=== PATIENT | male | born 1960 | race African-American/Black ===

== ENCOUNTER 2017-10-05 15:07 | Inpatient (IN) ==
[~2017-10-05 15:07] MED LIST: CHLORHEXIDINE 0.12% ORAL RINSE 60 ML BOTTLE SWISH/SPIT SCH; DEXTROSE 50% 25 GM/50 ML VIAL IV PRN; GLUCAGON 1 MG VIAL IM PRN; SODIUM CHLORIDE 0.9% 1,000 ML IV SCH; ZOLPIDEM 5 MG TABLET PO PRN; oxyCODONE/ACETAMINOPHEN 5-325 MG TABLET PO PRN
[2017-10-05] MEDS ORDERED: oxyCODONE/ACETAMINOPHEN 5-325 MG TABLET PO PRN (16:43)
[2017-10-05] MEDS ORDERED: DEXTROSE 50% 25 GM/50 ML VIAL IV PRN ×2 (16:43)
[2017-10-05] MEDS ORDERED: GLUCAGON 1 MG VIAL IM PRN ×2 (16:43)
[2017-10-05] MEDS ORDERED: ZOLPIDEM 5 MG TABLET PO PRN (16:43)
[2017-10-05] MEDS ORDERED: ZALEPLON 5 MG CAPSULE PO PRN (17:30)
[2017-10-05] MEDS: SODIUM CHLORIDE 0.9% 1,000 ML IV SCH (17:37)
[2017-10-05] MEDS ORDERED: ALBUTEROL/IPRATROPIUM 3 ML NEB RESP TX SCH (19:00)
[2017-10-05] MEDS: ALBUTEROL/IPRATROPIUM 3 ML NEB RESP TX SCH (19:54)
[2017-10-05] MEDS ORDERED: METOPROLOL TARTRATE 25 MG TABLET PO SCH (21:00)
[2017-10-05] MEDS: CHLORHEXIDINE 0.12% ORAL RINSE 60 ML BOTTLE SWISH/SPIT SCH (21:37)
[2017-10-05] MEDS: METOPROLOL TARTRATE 25 MG TABLET PO SCH (21:38)
[2017-10-06] MEDS: ALBUTEROL/IPRATROPIUM 3 ML NEB RESP TX SCH ×4 (00:26→20:20)
[2017-10-06 03:03] LABS: ABG Base Excess 3.7 MMOL/L (-2.5-2.5); ABG HCO3 27.8 MMOL/L (20-26); ABG Oxygen Saturation 91.1 % (95-100); ABG PCO2 40.3 MM HG (35-48); ABG PH 7.457 (7.35-7.45); ABG PO2 56.1 MM HG (80-95); ABG TCO2 29.1 MMOL/L (23-27); Allen Test Positive; Pt O2 Delivery Device Room Air
[2017-10-06 05:03] LABS: Basophils % 0.3 % (0.0-0.8); Eosinophils % 0.5 % (0.00-10.9); Hematocrit 41.6 VOL% (42.0-52.0); Hemoglobin 14.6 GM/DL (14.0-18.0); Immature Granulocytes % 0.3 %; Immature Granulocytes Absolute 0.01 #; Lymphocytes # 1.6 10*3/uL (1.4-4.0); Lymphocytes % 41.2 % (21.2-54.2); Mean Corpuscular HGB Conc 35.1 GM/DL (32-36); Mean Corpuscular Hemoglobin 33 PG (27-34); Mean Corpuscular Volume 93.3 FL (87-102); Monocytes # 0.4 10*3/uL (0.11-0.8); Monocytes % 10.3 % (1.7-12.7); Neutrophils # 1.8 10*3/uL (1.4-7.4); Neutrophils % 47.4 % (38.7-73.9); Platelet Count 130 T/CUMM (130-400); Red Blood Count 4.46 MC/CUMM (3.8-5.5); Red Cell Distribution Width 13.6 % (9.3-17.3); White Blood Count 3.9 T/CUMM (4-12)
[2017-10-06 05:34] LABS: Bilirubin,Total 0.8 MG/DL (0.2-1.0); Calcium 8.5 MG/DL (8.5-10.1); Osmolality,Calculated 278.3 MOS/KG (273-304); Potassium 3.8 MMOL/L (3.5-5.1); Total Protein 6.2 G/DL (6.4-8.3)
[2017-10-06 06:39] LABS: Band Neutrophils 1 % (0-10); Eosinophils 1 % (0-10); Hypochromasia Slight; Lymphocytes 24 % (20-55); Platelet Estimate Adequate; Segmented Neutrophils 67 % (50-85); Total Cells Counted 100
[2017-10-06] MEDS ORDERED: GLIMEPIRIDE 4 MG TABLET PO SCH (08:00)
[2017-10-06] MEDS: ROSUVASTATIN 10 MG TABLET PO SCH (08:32)
[2017-10-06] MEDS: PANTOPRAZOLE 40 MG TABLET PO SCH (08:33)
[2017-10-06] MEDS: METOPROLOL TARTRATE 25 MG TABLET PO SCH ×2 (08:33→21:50)
[2017-10-06] MEDS: amLODIPine 5 MG TABLET PO SCH (08:33)
[2017-10-06] MEDS: GLIMEPIRIDE 4 MG TABLET PO SCH (08:34)
[2017-10-06] MEDS: ASPIRIN CHEW 81 MG TABLET PO SCH (08:34)
[2017-10-06] MEDS: CHLORHEXIDINE 0.12% ORAL RINSE 60 ML BOTTLE SWISH/SPIT SCH ×2 (08:35→21:51)
[2017-10-06] MEDS ORDERED: ASPIRIN CHEW 81 MG TABLET PO SCH (09:00)
[2017-10-06] MEDS ORDERED: amLODIPine 5 MG TABLET PO SCH (09:00)
[2017-10-06] MEDS ORDERED: PANTOPRAZOLE 40 MG TABLET PO SCH (09:00)
[2017-10-06] MEDS ORDERED: ROSUVASTATIN 10 MG TABLET PO SCH (09:00)
[2017-10-06] MEDS: SODIUM CHLORIDE 0.9% 1,000 ML IV SCH (16:20)
[2017-10-07] MEDS: ALBUTEROL/IPRATROPIUM 3 ML NEB RESP TX SCH ×4 (01:13→19:41)
[2017-10-07] MEDS: ROSUVASTATIN 10 MG TABLET PO SCH (08:46)
[2017-10-07] MEDS: PANTOPRAZOLE 40 MG TABLET PO SCH (08:46)
[2017-10-07] MEDS: CHLORHEXIDINE 0.12% ORAL RINSE 60 ML BOTTLE SWISH/SPIT SCH ×2 (08:46→22:08)
[2017-10-07] MEDS: amLODIPine 5 MG TABLET PO SCH (08:47)
[2017-10-07] MEDS: GLIMEPIRIDE 4 MG TABLET PO SCH (08:47)
[2017-10-07] MEDS: METOPROLOL TARTRATE 25 MG TABLET PO SCH ×2 (08:47→22:07)
[2017-10-07] MEDS: ASPIRIN CHEW 81 MG TABLET PO SCH (08:56)
[2017-10-07] MEDS: SODIUM CHLORIDE 0.9% 1,000 ML IV SCH (16:20)
[2017-10-08] MEDS: ALBUTEROL/IPRATROPIUM 3 ML NEB RESP TX SCH ×4 (00:20→21:25)
[2017-10-08] MEDS: METOPROLOL TARTRATE 25 MG TABLET PO SCH ×2 (08:44→21:32)
[2017-10-08] MEDS: amLODIPine 5 MG TABLET PO SCH (08:44)
[2017-10-08] MEDS: PANTOPRAZOLE 40 MG TABLET PO SCH (08:44)
[2017-10-08] MEDS: ROSUVASTATIN 10 MG TABLET PO SCH (08:44)
[2017-10-08] MEDS: ASPIRIN CHEW 81 MG TABLET PO SCH (08:44)
[2017-10-08] MEDS: GLIMEPIRIDE 4 MG TABLET PO SCH (08:44)
[2017-10-08] MEDS: CHLORHEXIDINE 0.12% ORAL RINSE 60 ML BOTTLE SWISH/SPIT SCH ×2 (08:46→21:32)
[2017-10-08] MEDS: SODIUM CHLORIDE 0.9% 1,000 ML IV SCH (19:58)
[2017-10-09] MEDS: ALBUTEROL/IPRATROPIUM 3 ML NEB RESP TX SCH ×4 (02:13→19:00)
[2017-10-09] MEDS ORDERED: CEFUROXIME INJ 1,500 MG in SYRINGE 1 EACH IV ONE (06:55)
[2017-10-09] MEDS ORDERED: CEFUROXIME INJ 1,500 MG in SODIUM CHLORIDE 0.9% 100 ML IV ONE (06:55)
[2017-10-09] MEDS: ASPIRIN CHEW 81 MG TABLET PO SCH (08:33)
[2017-10-09] MEDS: ROSUVASTATIN 10 MG TABLET PO SCH (08:33)
[2017-10-09] MEDS: METOPROLOL TARTRATE 25 MG TABLET PO SCH ×2 (08:33→20:50)
[2017-10-09] MEDS: PANTOPRAZOLE 40 MG TABLET PO SCH (08:34)
[2017-10-09] MEDS: CHLORHEXIDINE 0.12% ORAL RINSE 60 ML BOTTLE SWISH/SPIT SCH (08:34)
[2017-10-09] MEDS: amLODIPine 5 MG TABLET PO SCH (08:34)
[2017-10-09] MEDS: GLIMEPIRIDE 4 MG TABLET PO SCH (08:34)
[2017-10-09] MEDS ORDERED: CHLORHEXIDINE 4% SOLN 118 ML BOTTLE TOP SCH ×2 (09:00)
[2017-10-10] MEDS: ALBUTEROL/IPRATROPIUM 3 ML NEB RESP TX SCH ×2 (00:40→07:31)
[2017-10-10] MEDS ORDERED: DIAZEPAM 5 MG TABLET PO ONE (05:15)
[2017-10-10] MEDS ORDERED: FAMOTIDINE 20 MG TABLET PO ONE (05:20)
[2017-10-10] MEDS ORDERED: PAPAVERINE 60 MG/2 ML VIAL ONE (05:30)
[2017-10-10] MEDS ORDERED: VANCOMYCIN 1,000 MG VIAL ONE (05:30)
[2017-10-10] MEDS: METOPROLOL TARTRATE 25 MG TABLET PO SCH (05:46)
[2017-10-10] MEDS: amLODIPine 5 MG TABLET PO SCH (05:47)
[2017-10-10] MEDS: PANTOPRAZOLE 40 MG TABLET PO SCH (05:47)
[2017-10-10] MEDS ORDERED: CEFUROXIME INJ 1,500 MG in SYRINGE 1 EACH IV ONE (06:00)
[2017-10-10 07:44] LABS: ABG Base Excess -0.6 MMOL/L (-2.5-2.5); ABG HCO3 22.2 MMOL/L (20-26); ABG Oxygen Saturation 99.5 % (95-100); ABG PCO2 31.3 MM HG (35-48); ABG PH 7.469 (7.35-7.45); ABG TCO2 23.2 MMOL/L (23-27); Glucose Heart Surgery 120 MG/DL (74-106); Hemoglobin Heart Surgery 13.8 G/DL (14.0-18.0); Ionized Calcium Arterial 1.16 MMOL/L (1.21-1.46); PCO2 Patient Temp Arterial 31.3 MMHG; PH Patient Temp Arterial 7.469; Patient Temperature 37 CELCIUS; Sodium Heart/CVR 137 MMOL/L (135-145)
[2017-10-10 07:56] LABS: Apearance,Urine CLEAR (Clear); Bacteria,Urine Occasional /HPF (Few); Bilirubin,Urine Negative (Negative); Blood, Urine Moderate mg/dL (Negative); Glucose,Urine (UA) Negative (Negative); Ketones,Urine Negative (Negative); Mucus,Urine Occasional /LPF (Occasional); Nitrite,Urine Negative (Negative); Protein,Urine Negative; RBC,Urine 9 /HPF (0-4); Squamous Epithelial Cell,Urine Occasional /HPF (0-10); Urine Color Yellow (Yellow); Urine Specific Gravity 1.008 (1.001-1.035); Urine Urobilinogen < 2.0 EU/DL (0.2-1.0); WBC,Urine 5 /HPF (0-6)
[2017-10-10 08:58] LABS: Hematocrit Heart Surgery 27.3 PERCENT (42-52); Hemoglobin Heart Surgery 8.8 G/DL (14.0-18.0); PCO2 Patient Temp Venous 36.2 MM HG; PH Patient Temp Venous 7.458; PO2 Patient Temp Venous 39.4 MM HG; Potassium Heart/CVR 5.3 MMOL/L (3.5-5.1); VBG HCO3 25.9 MEQ/L (24-28); VBG Oxygen Saturation 80.7 %; VBG PCO2 39.9 MMHG (41-51); VBG PH 7.428; VBG PO2 45.3 MMHG (17-40)
[2017-10-10] MEDS ORDERED: ALBUMIN 5% 12.5 GM/250 ML VIAL IV ONE (09:14)
[2017-10-10] MEDS ORDERED: PHENYLEPHRINE DRIP 40 MG/250 ML PREMIX IV ONE (09:14)
[2017-10-10 09:34] LABS: Hemoglobin Heart Surgery 10.7 G/DL (14.0-18.0); PCO2 Patient Temp Venous 34.9 MM HG; PH Patient Temp Venous 7.458; PO2 Patient Temp Venous 40.4 MM HG; Potassium Heart/CVR 5.1 MMOL/L (3.5-5.1); VBG Base Excess 0.5 MEQ/L (0-4); VBG HCO3 24.4 MEQ/L (24-28); VBG Oxygen Saturation 81.8 %; VBG PCO2 36.5 MMHG (41-51); VBG PH 7.443; VBG PO2 43.3 MMHG (17-40)
[2017-10-10] MEDS ORDERED: POTASSIUM CHLORIDE RIDER 100 ML IV ONE (09:45)
[2017-10-10] MEDS ORDERED: CALCIUM CHLORIDE 1,000 MG/10 ML SYRINGE IV ONE (09:45)
[2017-10-10] MEDS ORDERED: EPINEPHrine 1 MG/10 ML SYRINGE ONE (09:50)
[2017-10-10] MEDS ORDERED: ATROPINE 1 MG/1 ML VIAL ONE (09:51)
[2017-10-10] MEDS ORDERED: PHENYLEPHRINE DRIP 20 MG/250 ML PREMIX IV ONE ×2 (09:58→10:58)
[2017-10-10] MEDS ORDERED: DEXTROSE 5% KCL 20 MEQ 20 MEQ/1,000 ML BAG IV ONE (09:58)
[2017-10-10] MEDS ORDERED: SODIUM BICARBONATE 50 MEQ/50 ML SYRINGE IV ONE (09:58)
[2017-10-10] MEDS ORDERED: PROTAMINE SULFATE 250 MG/25 ML VIAL IV ONE (09:58)
[2017-10-10] MEDS ORDERED: MAGNESIUM SULFATE 1 GM/2 ML VIAL ONE (09:58)
[2017-10-10] MEDS ORDERED: ALBUMIN 25% 25 GM/100 ML VIAL IV ONE (09:58)
[2017-10-10] MEDS ORDERED: PROTAMINE SULFATE 50 MG/5 ML VIAL IV ONE (09:59)
[2017-10-10] MEDS ORDERED: HEPARIN 10,000 UNIT/10 ML VIAL ONE (09:59)
[2017-10-10] MEDS ORDERED: MANNITOL 12.5 GM/50 ML VIAL IV ONE (09:59)
[2017-10-10] MEDS ORDERED: FUROSEMIDE 20 MG/2 ML VIAL ONE (09:59)
[2017-10-10] MEDS ORDERED: methylPREDNISolone SOD SUC 1,000 MG/8 ML VIAL ONE (09:59)
[2017-10-10 10:08] LABS: ABG Base Excess 0.8 MMOL/L (-2.5-2.5); ABG HCO3 24.6 MMOL/L (20-26); ABG Oxygen Saturation 99.2 % (95-100); ABG PCO2 36.5 MM HG (35-48); ABG PH 7.446 (7.35-7.45); ABG TCO2 25.7 MMOL/L (23-27); Glucose Heart Surgery 237 MG/DL (74-106); Hemoglobin Heart Surgery 12.3 G/DL (14.0-18.0); Ionized Calcium Arterial 1.35 MMOL/L (1.21-1.46); PCO2 Patient Temp Arterial 36.5 MMHG; PH Patient Temp Arterial 7.446; Patient Temperature 37 CELCIUS; Potassium Heart/CVR 4.3 MMOL/L (3.5-5.1); Sodium Heart/CVR 137 MMOL/L (135-145)
[2017-10-10] MEDS ORDERED: MIDAZOLAM 10 MG/2 ML VIAL ONE ×2 (10:53→10:54)
[2017-10-10] MEDS ORDERED: MINERAL OIL/PETROLATUM OPH OINT 3.5 GM TUBE ONE (10:57)
[2017-10-10] MEDS ORDERED: SEVOFLURANE 1 UNIT/15 MINUTE INH ONE (10:57)
[2017-10-10] MEDS ORDERED: VECURONIUM 10 MG VIAL IV ONE (10:57)
[2017-10-10] MEDS ORDERED: ETOMIDATE 40 MG/20 ML VIAL IV ONE (10:58)
[2017-10-10] MEDS ORDERED: SODIUM CHLORIDE 0.9% 100 ML IV ONE ×2 (10:58)
[2017-10-10] MEDS ORDERED: AMINOCAPROIC ACID 5,000 MG/20 ML VIAL IV ONE (10:58)
[2017-10-10] MEDS ORDERED: LACTATED RINGERS 1,000 ML IV ONE (10:58)
[2017-10-10] MEDS ORDERED: NITROGLYCERIN DRIP 50 MG/250 ML BOTTLE IV ONE (10:58)
[2017-10-10] MEDS ORDERED: SODIUM CHLORIDE 0.9% 1,000 ML IV ONE (10:58)
[2017-10-10] MEDS ORDERED: SODIUM CHLORIDE 0.9% 250 ML IV ONE (10:58)
[2017-10-10] MEDS ORDERED: HEPARIN/NACL 0.9% 2 UNITS/ML 1,000 ML IV ONE (10:59)
[2017-10-10] MEDS ORDERED: CALCIUM CHLORIDE 1,000 MG/10 ML SYRINGE IV PRN (11:03)
[2017-10-10] MEDS ORDERED: INSULIN REGULAR 100 UNIT/ML IV PRN (11:03)
[2017-10-10] MEDS ORDERED: DEXTROSE 50% 25 GM/50 ML VIAL IV PRN ×2 (11:03)
[2017-10-10] MEDS ORDERED: MORPHINE 10 MG/1 ML VIAL IV PRN (11:03)
[2017-10-10] MEDS ORDERED: INSULIN REGULAR 100 UNIT/ML IV ONE (11:03)
[2017-10-10] MEDS ORDERED: MIDAZOLAM 10 MG/2 ML VIAL IV PRN (11:03)
[2017-10-10] MEDS ORDERED: PHENYLEPHRINE DRIP 40 MG/250 ML PREMIX IV PRN (11:03)
[2017-10-10] MEDS ORDERED: NITROPRUSSIDE 100 MG in DEXTROSE 5% 250 ML IV PRN (11:03)
[2017-10-10] MEDS ORDERED: POTASSIUM CHLORIDE RIDER 10 MEQ in PREMIX 1 EACH IV PRN (11:03)
[2017-10-10] MEDS ORDERED: SODIUM CHLORIDE 0.45% 1,000 ML IV SCH ×2 (11:03)
[2017-10-10] MEDS ORDERED: ONDANSETRON 4 MG/2 ML VIAL IV PRN (11:03)
[2017-10-10] MEDS ORDERED: ACETAMINOPHEN 650 MG SUPP RECTAL PRN (11:03)
[2017-10-10] MEDS ORDERED: INSULIN REGULAR DRIP 100 ML IV SCH (11:03)
[2017-10-10] MEDS ORDERED: MAGNESIUM SULF RIDER 2 GM in PREMIX 1 EACH IV PRN (11:03)
[2017-10-10] MEDS ORDERED: VECURONIUM 10 MG VIAL IV PRN ×2 (11:03)
[2017-10-10] MEDS ORDERED: MAGNESIUM SULF RIDER 4 GM in PREMIX 1 EACH IV PRN (11:03)
[2017-10-10] MEDS ORDERED: LACTATED RINGERS 250 ML IV PRN (11:03)
[2017-10-10 11:25] LABS: ABG HCO3 24.5 MMOL/L (20-26); ABG Oxygen Saturation 99.4 % (95-100); ABG PCO2 40.6 MM HG (35-48); ABG PH 7.395 (7.35-7.45); ABG TCO2 21.9 MMOL/L (23-27); Glucose Heart Surgery 206 MG/DL (74-106); Hematocrit Heart Surgery 38.2 PERCENT (42-52); Hemoglobin Heart Surgery 12.4 G/DL (14.0-18.0); Potassium Heart/CVR 3.9 MMOL/L (3.5-5.1)
[2017-10-10 11:27] LABS: Basophils % 0.3 % (0.0-0.8); Eosinophils # 0.1 10*3/uL (0.0-0.87); Eosinophils % 1.8 % (0.00-10.9); Hematocrit 36.6 VOL% (42.0-52.0); Hemoglobin 12.7 GM/DL (14.0-18.0); Immature Granulocytes % 2.1 %; Immature Granulocytes Absolute 0.17 #; Lymphocytes # 0.8 10*3/uL (1.4-4.0); Lymphocytes % 9.8 % (21.2-54.2); Mean Corpuscular HGB Conc 34.7 GM/DL (32-36); Mean Corpuscular Hemoglobin 33 PG (27-34); Mean Corpuscular Volume 94.8 FL (87-102); Mean Platelet Volume 11.2 FL (9.6-12.0); Monocytes # 0.6 10*3/uL (0.11-0.8); Monocytes % 8.1 % (1.7-12.7); Neutrophils # 6.2 10*3/uL (1.4-7.4); Neutrophils % 77.9 % (38.7-73.9); Platelet Count 164 T/CUMM (130-400); Red Blood Count 3.86 MC/CUMM (3.8-5.5); Red Cell Distribution Width 13.7 % (9.3-17.3); White Blood Count 7.9 T/CUMM (4-12)
[2017-10-10 11:58] LABS: Albumin 3.4 G/DL (3.4-5.0); Bilirubin,Total 1.2 MG/DL (0.2-1.0); Calcium 9.6 MG/DL (8.5-10.1); Magnesium 2.5 MG/DL (1.8-2.4); Osmolality,Calculated 289.8 MOS/KG (273-304); Total Protein 6.2 G/DL (6.4-8.3)
[2017-10-10] MEDS: KETOROLAC 30 MG/1 ML VIAL IV SCH ×3 (12:12→23:05)
[2017-10-10] MEDS: POTASSIUM CHLORIDE RIDER 20 MEQ in PREMIX 1 EACH IV PRN ×2 (12:18→20:19)
[2017-10-10 12:21] LABS: CKMB % 3.6 %
[2017-10-10 12:32] LABS: Troponin I Only 1.99 NG/ML (0.00-0.045)
[2017-10-10] MEDS: MIDAZOLAM 2 MG/2 ML VIAL IV PRN ×2 (13:17→15:06)
[2017-10-10 14:34] LABS: INR 1.1; PT Patient Result 11.2 SECS; Partial Thromboplastin Time 33.4 SECS (0-40)
[2017-10-10] MEDS ORDERED: PROPOFOL 1,000 MG/100 ML BOTTLE IV ONE (14:50)
[2017-10-10] MEDS ORDERED: PROPOFOL 1,000 MG/100 ML BOTTLE IV PRN (15:06)
[2017-10-10 15:11] LABS: ABG HCO3 23.6 MMOL/L (20-26); ABG PCO2 49.8 MM HG (35-48); ABG TCO2 22.9 MMOL/L (23-27); Glucose Heart Surgery 100 MG/DL (74-106); Hematocrit Heart Surgery 37.3 PERCENT (42-52); Hemoglobin Heart Surgery 12.1 G/DL (14.0-18.0); Potassium Heart/CVR 4.1 MMOL/L (3.5-5.1)
[2017-10-10] MEDS: ALBUMIN 5% 12.5 GM in PREMIX 1 EACH IV PRN ×2 (15:32→19:08)
[2017-10-10 18:06] LABS: ABG HCO3 24.9 MMOL/L (20-26); ABG Oxygen Saturation 94.9 % (95-100); ABG PCO2 41.5 MM HG (35-48); ABG PH 7.396 (7.35-7.45); ABG PO2 78.4 MM HG (80-95); ABG TCO2 26.2 MMOL/L (23-27); Glucose Heart Surgery 116 MG/DL (74-106); Hemoglobin Heart Surgery 10.9 G/DL (14.0-18.0); Potassium Heart/CVR 4.3 MMOL/L (3.5-5.1)
[2017-10-10] MEDS: CEFUROXIME INJ 1,500 MG in SYRINGE 1 EACH IV SCH (18:30)
[2017-10-10] MEDS: DEXMEDETOMIDINE 200 MCG in SODIUM CHLORIDE 0.9% 48 ML IV SCH (19:07)
[2017-10-10] MEDS: MORPHINE 2 MG/1 ML SYRINGE IV PRN ×2 (19:42→21:18)
[2017-10-10 20:04] LABS: ABG HCO3 23.5 MMOL/L (20-26); ABG Oxygen Saturation 95.4 % (95-100); ABG PCO2 38.4 MM HG (35-48); ABG PH 7.405 (7.35-7.45); ABG PO2 79.3 MM HG (80-95); ABG TCO2 24.7 MMOL/L (23-27); Glucose Heart Surgery 167 MG/DL (74-106); Hemoglobin Heart Surgery 11.3 G/DL (14.0-18.0); Potassium Heart/CVR 4.2 MMOL/L (3.5-5.1)
[2017-10-10 20:48] LABS: Troponin I Only 5.51 NG/ML (0.00-0.045)
[2017-10-10] MEDS ORDERED: CHLORHEXIDINE 0.12% ORAL RINSE 60 ML BOTTLE SWISH/SPIT SCH (21:00)
[2017-10-10] MEDS ORDERED: FUROSEMIDE 40 MG/4 ML VIAL IV ONE (23:14)
[2017-10-11 00:10] LABS: ABG Base Excess 0.1 MMOL/L (-2.5-2.5); ABG HCO3 24.4 MMOL/L (20-26); ABG Oxygen Saturation 95.7 % (95-100); ABG PH 7.425 (7.35-7.45); ABG PO2 81.4 MM HG (80-95); ABG TCO2 25.5 MMOL/L (23-27); Glucose Heart Surgery 159 MG/DL (74-106); Hemoglobin Heart Surgery 11.3 G/DL (14.0-18.0); Potassium Heart/CVR 4.1 MMOL/L (3.5-5.1)
[2017-10-11] MEDS: POTASSIUM CHLORIDE RIDER 20 MEQ in PREMIX 1 EACH IV PRN ×2 (00:24→04:12)
[2017-10-11] MEDS: DEXMEDETOMIDINE 200 MCG in SODIUM CHLORIDE 0.9% 48 ML IV SCH (00:29)
[2017-10-11 02:03] LABS: ABG Base Excess 0.2 MMOL/L (-2.5-2.5); ABG HCO3 24.6 MMOL/L (20-26); ABG Oxygen Saturation 95.7 % (95-100); ABG PCO2 39.6 MM HG (35-48); ABG PH 7.405 (7.35-7.45); ABG PO2 79.2 MM HG (80-95); ABG TCO2 22.5 MMOL/L (23-27); Glucose Heart Surgery 140 MG/DL (74-106); Hematocrit Heart Surgery 32.2 PERCENT (42-52); Hemoglobin Heart Surgery 10.4 G/DL (14.0-18.0); Potassium Heart/CVR 4.3 MMOL/L (3.5-5.1)
[2017-10-11 04:05] LABS: ABG Base Excess 1.3 MMOL/L (-2.5-2.5); ABG HCO3 25.5 MMOL/L (20-26); ABG Oxygen Saturation 93.7 % (95-100); ABG PCO2 39.6 MM HG (35-48); ABG PH 7.422 (7.35-7.45); ABG PO2 69.2 MM HG (80-95); ABG TCO2 23.3 MMOL/L (23-27); Glucose Heart Surgery 134 MG/DL (74-106); Hematocrit Heart Surgery 32.5 PERCENT (42-52); Hemoglobin Heart Surgery 10.5 G/DL (14.0-18.0); Potassium Heart/CVR 4.1 MMOL/L (3.5-5.1)
[2017-10-11 04:40] LABS: Albumin 3.5 G/DL (3.4-5.0); Bilirubin,Direct 0.1 MG/DL (0.0-0.20); Bilirubin,Total 0.5 MG/DL (0.2-1.0); Calcium 8.7 MG/DL (8.5-10.1); Potassium 4.1 MMOL/L (3.5-5.1)
[2017-10-11 04:41] LABS: CKMB % 2.2 %
[2017-10-11 04:45] LABS: Troponin I Only 2.62 NG/ML (0.00-0.045)
[2017-10-11] MEDS: KETOROLAC 30 MG/1 ML VIAL IV SCH ×4 (04:49→21:50)
[2017-10-11 05:07] LABS: ABG Base Excess 0.5 MMOL/L (-2.5-2.5); ABG HCO3 24.8 MMOL/L (20-26); ABG Oxygen Saturation 94.6 % (95-100); ABG PCO2 40.6 MM HG (35-48); ABG PH 7.402 (7.35-7.45); ABG TCO2 22.9 MMOL/L (23-27); Glucose Heart Surgery 137 MG/DL (74-106); Hematocrit Heart Surgery 32.3 PERCENT (42-52); Hemoglobin Heart Surgery 10.5 G/DL (14.0-18.0); Potassium Heart/CVR 4.4 MMOL/L (3.5-5.1)
[2017-10-11 05:07] LABS: Basophils % 0.1 % (0.0-0.8); Hematocrit 30.3 VOL% (42.0-52.0); Hemoglobin 10.4 GM/DL (14.0-18.0); Immature Granulocytes % 0.8 %; Immature Granulocytes Absolute 0.09 #; Lymphocytes # 0.5 10*3/uL (1.4-4.0); Lymphocytes % 4.2 % (21.2-54.2); Mean Corpuscular HGB Conc 34.3 GM/DL (32-36); Mean Corpuscular Hemoglobin 33 PG (27-34); Mean Corpuscular Volume 96.2 FL (87-102); Mean Platelet Volume 11.9 FL (9.6-12.0); Monocytes # 0.9 10*3/uL (0.11-0.8); Monocytes % 7.4 % (1.7-12.7); Neutrophils # 10.4 10*3/uL (1.4-7.4); Neutrophils % 87.5 % (38.7-73.9); Platelet Count 142 T/CUMM (130-400); Red Blood Count 3.15 MC/CUMM (3.8-5.5); Red Cell Distribution Width 13.9 % (9.3-17.3); White Blood Count 11.9 T/CUMM (4-12)
[2017-10-11 05:40] LABS: Band Neutrophils 1 % (0-10); Lymphocytes 7 % (20-55); Microcytosis 1+; Ovalocytes Slight; Platelet Estimate Adequate; Segmented Neutrophils 83 % (50-85); Total Cells Counted 100
[2017-10-11] MEDS: CEFUROXIME INJ 1,500 MG in SYRINGE 1 EACH IV SCH (05:47)
[2017-10-11] MEDS ORDERED: DEXTROSE 50% 25 GM/50 ML VIAL IV PRN (07:59)
[2017-10-11] MEDS ORDERED: MAGNESIUM SULF RIDER 4 GM in PREMIX 1 EACH IV PRN (07:59)
[2017-10-11] MEDS ORDERED: MAGNESIUM SULF RIDER 2 GM in PREMIX 1 EACH IV PRN (07:59)
[2017-10-11] MEDS ORDERED: GLUCAGON 1 MG VIAL IM PRN (07:59)
[2017-10-11] MEDS ORDERED: ONDANSETRON 4 MG/2 ML VIAL IV PRN (07:59)
[2017-10-11] MEDS ORDERED: ACETAMINOPHEN 325 MG TABLET PO PRN (07:59)
[2017-10-11] MEDS ORDERED: POTASSIUM CHLORIDE 20 MEQ TABLET PO PRN (07:59)
[2017-10-11] MEDS ORDERED: ALUMINUM/MAGNES/SIMETH MAX STR 30 ML UDCUP PO PRN (07:59)
[2017-10-11] MEDS ORDERED: ZALEPLON 5 MG CAPSULE PO PRN (07:59)
[2017-10-11] MEDS ORDERED: MAGNESIUM HYDROXIDE SUSP 30 ML UDCUP PO PRN (07:59)
[2017-10-11] MEDS ORDERED: PANTOPRAZOLE 40 MG TABLET PO SCH (09:00)
[2017-10-11] MEDS ORDERED: ASPIRIN EC 81 MG TABLET PO SCH (09:00)
[2017-10-11] MEDS: DOCUSATE SODIUM 100 MG CAPSULE PO SCH (09:07)
[2017-10-11] MEDS: VALSARTAN/HCTZ 160-12.5 MG TABLET PO SCH (09:07)
[2017-10-11] MEDS: GLIMEPIRIDE 4 MG TABLET PO SCH (09:07)
[2017-10-11] MEDS: ASPIRIN EC 325 MG TABLET PO SCH (09:07)
[2017-10-11] MEDS: CARVEDILOL 25 MG TABLET PO SCH ×2 (09:07→21:51)
[2017-10-11] MEDS: CHLORHEXIDINE 0.12% ORAL RINSE 60 ML BOTTLE SWISH/SPIT SCH ×2 (09:08→21:51)
[2017-10-11] MEDS: ASCORBIC ACID 500 MG TABLET PO SCH (09:08)
[2017-10-11] MEDS: FERROUS SULFATE 325 MG TABLET PO SCH (09:08)
[2017-10-11] MEDS: PANTOPRAZOLE 40 MG TABLET PO SCH (09:08)
[2017-10-11] MEDS: amLODIPine 5 MG TABLET PO SCH (09:08)
[2017-10-11] MEDS: SODIUM CHLOR 0.45% KCL 20 MEQ 20 MEQ/1,000 ML BAG IV SCH (10:03)
[2017-10-11] MEDS ORDERED: INSULIN REGULAR 100 UNIT/ML SUBCUT PRN (12:00)
[2017-10-11] MEDS: oxyCODONE/ACETAMINOPHEN 5-325 MG TABLET PO PRN (18:17)
[2017-10-11] MEDS ORDERED: GLIMEPIRIDE 4 MG TABLET PO SCH (21:00)
[2017-10-11] MEDS: PRAVASTATIN 40 MG TABLET PO SCH (21:51)
[2017-10-12] MEDS: KETOROLAC 30 MG/1 ML VIAL IV SCH ×4 (01:50→20:23)
[2017-10-12 05:45] LABS: Basophils % 0.1 % (0.0-0.8); Hematocrit 28.7 VOL% (42.0-52.0); Hemoglobin 9.7 GM/DL (14.0-18.0); Immature Granulocytes % 0.7 %; Immature Granulocytes Absolute 0.11 #; Lymphocytes # 0.8 10*3/uL (1.4-4.0); Lymphocytes % 4.6 % (21.2-54.2); Mean Corpuscular HGB Conc 33.8 GM/DL (32-36); Mean Corpuscular Hemoglobin 33 PG (27-34); Mean Corpuscular Volume 96.3 FL (87-102); Mean Platelet Volume 11.7 FL (9.6-12.0); Monocytes # 1.4 10*3/uL (0.11-0.8); Monocytes % 8.2 % (1.7-12.7); Neutrophils # 14.6 10*3/uL (1.4-7.4); Neutrophils % 86.4 % (38.7-73.9); Platelet Count 132 T/CUMM (130-400); Red Blood Count 2.98 MC/CUMM (3.8-5.5); Red Cell Distribution Width 13.8 % (9.3-17.3); White Blood Count 16.9 T/CUMM (4-12)
[2017-10-12] MEDS ORDERED: FUROSEMIDE 40 MG/4 ML VIAL IV ONE (06:00)
[2017-10-12 06:24] LABS: Alanine Aminotransferase 44 U/L (16-61); Albumin 2.9 G/DL (3.4-5.0); Alkaline Phosphatase 39 U/L (45-117); Aspartate Amino Transferase 29 U/L (0-37); Bilirubin,Indirect 0.5 MG/DL (0.0-1.0); Blood Urea Nitrogen 15 MG/DL (7-18); Calcium 8.6 MG/DL (8.5-10.1); Glucose 108 MG/DL (74-106); Magnesium 2.3 MG/DL (1.8-2.4); Potassium 4.2 MMOL/L (3.5-5.1); Sodium 143 MMOL/L (136-145); Total Protein 5.7 G/DL (6.4-8.3)
[2017-10-12 06:54] LABS: Hypochromasia 1+; Lymphocytes 3 % (20-55); Microcytosis 1+; Platelet Estimate Adequate; Segmented Neutrophils 92 % (50-85); Total Cells Counted 100
[2017-10-12] MEDS: DOCUSATE SODIUM 100 MG CAPSULE PO SCH (09:36)
[2017-10-12] MEDS: VALSARTAN/HCTZ 160-12.5 MG TABLET PO SCH (09:36)
[2017-10-12] MEDS: ASCORBIC ACID 500 MG TABLET PO SCH (09:36)
[2017-10-12] MEDS: PANTOPRAZOLE 40 MG TABLET PO SCH (09:37)
[2017-10-12] MEDS: ASPIRIN EC 325 MG TABLET PO SCH (09:37)
[2017-10-12] MEDS: GLIMEPIRIDE 4 MG TABLET PO SCH (09:37)
[2017-10-12] MEDS: amLODIPine 5 MG TABLET PO SCH (09:37)
[2017-10-12] MEDS: CARVEDILOL 25 MG TABLET PO SCH ×2 (09:37→20:23)
[2017-10-12] MEDS: FERROUS SULFATE 325 MG TABLET PO SCH (11:46)
[2017-10-12] MEDS: SODIUM CHLOR 0.45% KCL 20 MEQ 20 MEQ/1,000 ML BAG IV SCH (11:46)
[2017-10-12] MEDS: CHLORHEXIDINE 0.12% ORAL RINSE 60 ML BOTTLE SWISH/SPIT SCH ×2 (14:37→20:23)
[2017-10-12] MEDS: GLIMEPIRIDE 2 MG TABLET PO SCH (16:53)
[2017-10-12] MEDS: PRAVASTATIN 40 MG TABLET PO SCH (20:23)
[2017-10-12] MEDS: oxyCODONE/ACETAMINOPHEN 5-325 MG TABLET PO PRN (23:20)
[2017-10-13] MEDS: KETOROLAC 30 MG/1 ML VIAL IV SCH ×4 (02:22→22:07)
[2017-10-13 06:05] LABS: Eosinophils % 0.1 % (0.00-10.9); Hematocrit 29.1 VOL% (42.0-52.0); Hemoglobin 9.8 GM/DL (14.0-18.0); Immature Granulocytes % 0.4 %; Immature Granulocytes Absolute 0.04 #; Lymphocytes # 1.3 10*3/uL (1.4-4.0); Lymphocytes % 13.7 % (21.2-54.2); Mean Corpuscular HGB Conc 33.7 GM/DL (32-36); Mean Corpuscular Hemoglobin 32 PG (27-34); Mean Platelet Volume 11.7 FL (9.6-12.0); Monocytes % 10.1 % (1.7-12.7); Neutrophils # 7.2 10*3/uL (1.4-7.4); Neutrophils % 75.7 % (38.7-73.9); Platelet Count 144 T/CUMM (130-400); Red Blood Count 3.03 MC/CUMM (3.8-5.5); Red Cell Distribution Width 13.9 % (9.3-17.3); White Blood Count 9.5 T/CUMM (4-12)
[2017-10-13 06:40] LABS: Alanine Aminotransferase 88 U/L (16-61); Albumin 2.9 G/DL (3.4-5.0); Alkaline Phosphatase 49 U/L (45-117); Aspartate Amino Transferase 48 U/L (0-37); Bilirubin,Direct < 0.100 MG/DL (0.0-0.20); Bilirubin,Indirect 0.3 MG/DL (0.0-1.0); Blood Urea Nitrogen 17 MG/DL (7-18); Calcium 8.6 MG/DL (8.5-10.1); Glucose 100 MG/DL (74-106); Magnesium 2.1 MG/DL (1.8-2.4); Osmolality,Calculated 282.3 MOS/KG (273-304); Sodium 141 MMOL/L (136-145); Total Protein 5.6 G/DL (6.4-8.3)
[2017-10-13 06:43] LABS: Troponin I Only 0.659 NG/ML (0.00-0.045)
[2017-10-13] MEDS: VALSARTAN/HCTZ 160-12.5 MG TABLET PO SCH (10:05)
[2017-10-13] MEDS: GLIMEPIRIDE 4 MG TABLET PO SCH (10:06)
[2017-10-13] MEDS: DOCUSATE SODIUM 100 MG CAPSULE PO SCH (10:06)
[2017-10-13] MEDS: ASPIRIN EC 325 MG TABLET PO SCH (10:06)
[2017-10-13] MEDS: FERROUS SULFATE 325 MG TABLET PO SCH (10:06)
[2017-10-13] MEDS: amLODIPine 5 MG TABLET PO SCH (10:06)
[2017-10-13] MEDS: PANTOPRAZOLE 40 MG TABLET PO SCH (10:06)
[2017-10-13] MEDS: CARVEDILOL 25 MG TABLET PO SCH ×2 (10:07→22:07)
[2017-10-13] MEDS: ASCORBIC ACID 500 MG TABLET PO SCH (10:07)
[2017-10-13] MEDS: CHLORHEXIDINE 0.12% ORAL RINSE 60 ML BOTTLE SWISH/SPIT SCH ×2 (10:12→22:07)
[2017-10-13] MEDS: GLIMEPIRIDE 2 MG TABLET PO SCH (16:22)
[2017-10-13] MEDS: PRAVASTATIN 40 MG TABLET PO SCH (22:07)
[2017-10-14] MEDS: KETOROLAC 30 MG/1 ML VIAL IV SCH (03:32)
[2017-10-14] MEDS: FERROUS SULFATE 325 MG TABLET PO SCH (09:50)
[2017-10-14] MEDS: GLIMEPIRIDE 4 MG TABLET PO SCH (09:50)
[2017-10-14] MEDS: VALSARTAN/HCTZ 160-12.5 MG TABLET PO SCH (09:50)
[2017-10-14] MEDS: DOCUSATE SODIUM 100 MG CAPSULE PO SCH (09:51)
[2017-10-14] MEDS: amLODIPine 5 MG TABLET PO SCH (09:51)
[2017-10-14] MEDS: ASCORBIC ACID 500 MG TABLET PO SCH (09:51)
[2017-10-14] MEDS: CARVEDILOL 25 MG TABLET PO SCH ×2 (09:51→21:02)
[2017-10-14] MEDS: CHLORHEXIDINE 0.12% ORAL RINSE 60 ML BOTTLE SWISH/SPIT SCH ×2 (09:51→21:02)
[2017-10-14] MEDS: PANTOPRAZOLE 40 MG TABLET PO SCH (09:51)
[2017-10-14] MEDS: ASPIRIN EC 325 MG TABLET PO SCH (09:51)
[2017-10-14] MEDS: GLIMEPIRIDE 2 MG TABLET PO SCH (17:52)
[2017-10-14] MEDS: oxyCODONE/ACETAMINOPHEN 5-325 MG TABLET PO PRN (18:33)
[2017-10-14] MEDS: PRAVASTATIN 40 MG TABLET PO SCH (21:02)
[2017-10-15 06:16] LABS: Basophils % 0.1 % (0.0-0.8); Eosinophils # 0.2 10*3/uL (0.0-0.87); Eosinophils % 1.9 % (0.00-10.9); Hematocrit 31.1 VOL% (42.0-52.0); Hemoglobin 10.7 GM/DL (14.0-18.0); Immature Granulocytes % 0.4 %; Immature Granulocytes Absolute 0.03 #; Lymphocytes # 1.1 10*3/uL (1.4-4.0); Lymphocytes % 13.8 % (21.2-54.2); Mean Corpuscular HGB Conc 34.4 GM/DL (32-36); Mean Corpuscular Hemoglobin 33 PG (27-34); Mean Corpuscular Volume 94.8 FL (87-102); Mean Platelet Volume 11.7 FL (9.6-12.0); Monocytes # 0.6 10*3/uL (0.11-0.8); Monocytes % 7.3 % (1.7-12.7); Neutrophils # 5.9 10*3/uL (1.4-7.4); Neutrophils % 76.5 % (38.7-73.9); Platelet Count 187 T/CUMM (130-400); Red Blood Count 3.28 MC/CUMM (3.8-5.5); Red Cell Distribution Width 13.2 % (9.3-17.3); White Blood Count 7.7 T/CUMM (4-12)
[2017-10-15 06:43] LABS: Alanine Aminotransferase 120 U/L (16-61); Albumin 2.8 G/DL (3.4-5.0); Alkaline Phosphatase 60 U/L (45-117); Aspartate Amino Transferase 30 U/L (0-37); Bilirubin,Indirect 0.6 MG/DL (0.0-1.0); Blood Urea Nitrogen 12 MG/DL (7-18); Calcium 8.6 MG/DL (8.5-10.1); Glucose 93 MG/DL (74-106); Osmolality,Calculated 282.1 MOS/KG (273-304); Potassium 3.7 MMOL/L (3.5-5.1); Sodium 142 MMOL/L (136-145); Total Protein 5.8 G/DL (6.4-8.3)
[2017-10-15] MEDS: ASPIRIN EC 325 MG TABLET PO SCH (08:37)
[2017-10-15] MEDS: DOCUSATE SODIUM 100 MG CAPSULE PO SCH (08:37)
[2017-10-15] MEDS: FERROUS SULFATE 325 MG TABLET PO SCH (08:37)
[2017-10-15] MEDS: ASCORBIC ACID 500 MG TABLET PO SCH (08:37)
[2017-10-15] MEDS: GLIMEPIRIDE 4 MG TABLET PO SCH (08:37)
[2017-10-15] MEDS: PANTOPRAZOLE 40 MG TABLET PO SCH (08:37)
[2017-10-15] MEDS: amLODIPine 5 MG TABLET PO SCH (08:38)
[2017-10-15] MEDS: CARVEDILOL 25 MG TABLET PO SCH (08:38)
[2017-10-15] MEDS: VALSARTAN/HCTZ 160-12.5 MG TABLET PO SCH (08:38)
[2017-10-15] MEDS: CHLORHEXIDINE 0.12% ORAL RINSE 60 ML BOTTLE SWISH/SPIT SCH (08:38)
[2017-10-15 11:37] VITALS: BP 83/50
== END 2017-10-15 13:13 | disposition home health service (06) | DRG 236 ==
LOC: N.TELES 15:19 → N.CVR 10-10 10:30 → N.TELES 10-11 11:04